=== PATIENT | male | born 1995 | race Caucasian/White ===

== ENCOUNTER 2024-05-30 14:12 | Emergency (ER) | payer OTHER, SELFPAY ==
[2024-05-30 15:04] VITALS: BP 131/77; PULSE 82; RESP 18; TEMP 36.6; O2SAT 98; BMI 19.2
--- NOTE | 2024-05-30 15:04 | ED_ITS ---
HPI - Animal Bite General Chief Complaint: Animal Bite Stated Complaint: mouse bite Time Seen by Provider: 05/30/24 16:14 Source: patient Mode of arrival: ambulatory Limitations: no limitations History of Present Illness HPI narrative: Patient is a 29-year-old male who presents to the emergency department for evaluation. He reports approximately 2-1/2 hours before his arrival here he had an encounter with a mouse that was acting unusual. He states that the mouse approached him which he would expect to be atypical of a masses behavior. He attempted to move the mouse away from him and thought that the mouse had bitten his left 4th finger. He states after attempting to move the mouse that it just cleared at him before running away. There was no break in the skin after this bite there was no bleeding. States that he presented to an urgent care for evaluation. When asked he states ?I made them give me a tetanus shot?. He is requesting rabies vaccination series at this time for ?peace of mind?. Related Data Allergies Allergy/AdvReac Type Severity Reaction Status Date / Time Penicillins Allergy Hives Verified 05/30/24 15:10 Review of Systems Review of Systems: Yes all other systems are reviewed and are negative [facility] Past Medical History Attestation statement: The following information was validated with the patient. Source: old records reviewed Social History Social History Advance Directives: No Advance Directives Information Provided: No Do you have a plan to hurt others: No Plan Physical Exam ED Vital Signs: Vital Signs - 24 hr 05/30/24 15:04 05/30/24 18:35 Temperature 97.9 F 97.9 F Pulse Rate 82 82 Respiratory Rate 18 18 Blood Pressure 131/77 131/77 Pulse Oximetry 98 98 Oxygen Delivery Method Room Air Room Air BMI result Body Mass Index 19.2 Appearance: Alert.?Oriented to person, place and time. No acute distress.?Normal affect. CVS: Heart sounds normal. Normal heart rate and rhythm.? Pulses normal.?? Respiratory: No respiratory distress.? Lung sounds clear to auscultation bilaterally?? Abdomen: Soft and non-tender. Normoactive bowel sounds. Skin: Skin warm and dry.? Normal skin color.? The area on his left 4th finger where there is any potential exposure to the mouth is without erythema swelling or break in the skin Extremities: No lower extremity edema.? Neuro: Moves all extremities spontaneously. Sensation intact bilaterally. Ambulates with normal steady gait. Course Course Course Narrative: This is an RME: Additional HPI, ROS, PE not included below will be deferred to primary provider. RME assessment and note performed by: Kallie Clifford PA-C This is a [id number]pcr-male who presents to the ER with complaints of left fourth finger animal bite. Pt states that about 2.5 hours ago he was accidentally bit by a small mouse. he states that the mouse had unusual behaviors and is concerned for rabies, would like series today. Plan: rabies vax Medical Decision Making Medical Decision Making MDM Narrative: Patient is a 29-year-old male who presents emergency department requesting rabies vaccination after exposure to a mouse as per HPI. I did discuss with patient that per the CBC guidelines there was no indication for post exposure prophylaxis of rabies vaccination series with mice. They are considered to be low risk wild animals rarely found to have rabies and have never been known to transmit rabies to humans. Currently there is no evidence of an open wound or broken skin to suggest even a bite from the mouse. Patient deemed stable for discharge home Differential Diagnosis Differential Diagnoses: The differential diagnosis associated with the presentation includes External Record Review External record reviewed: Outpatient record Discharge Plan Discharge Clinical Impression: Bitten by mouse, initial encounter Patient Disposition: Home, Self-Care Instructions: Animal Bite (ED) Additional Instructions: As discussed, per the CDC guidelines it is not indicated at this time that you receive a post exposure prophylaxis vaccination series for rabies which would typically include for vaccinations as well as rabies immune globulin. Currently there is no evidence of an open wound, broken skin. Mice are conside red to be low risk wild animals, rarely found to have rabies and have never been known to transmit rabies to humans. Referrals: Mariana Lozano NP [Primary Care Provider] - Interventions: ED Discharge Assessment Last Done: 05/30/24 18:35 Discharge Date/Time: 05/30/24 18:35 Print Language: Albanian
--- OUTSIDE RECORDS SUMMARY | 2024-05-30 16:06 | XMS_ITS | Continuity of Care Document ---
Author Organization [facility] Primary Car [facility] Address [address] [place] [address]- Care Team Providers Care Spooler Operator Name Role Phone Not on Staff, PCP Primary Care Physician Unavail able Encounter [facility] Date(s): 09/03/23 - 10/03/23 [facility] [address], [place] [address] Allergies, Adverse Reactions, Alerts Substance Reaction Severity Status penicillin Hives and swelling o f arms Rash Active Immunizations Given and Recorded Vaccine Date Status Refusal Reason Meningococcal Conjugate Vaccine 06/02/14 Given Meningococcal Conjugate Vaccine 1 05/05/09 Given influenza virus vaccine, live 2 08/02/11 Given influenza virus vaccine, live 3 07/05/10 Given Tet/Diphth/Acel, Pertussis (oldterm) 4 05/05/09 Gi yaniv Varicella Virus Vaccine 5 05/05/09 Given Varicella Virus Vaccine 6 02/25/99 Given Diphtheria/Tet/Pertussis, Acel (oldterm) 7 11/13/03 Given Diphtheria/Tet/Pertussis, Acel (oldterm) 8 04/13/00 Given Diphtheria/Tet/Pertussis, Acel (oldterm) 9 01/18/98 Given Diphtheria/Tet/Pertussis, Acel (oldterm) 10 97 Given Diphtheria/Tet/Pertussis, Acel (oldterm) 11 97 Given Diphtheria/Tet/Pertussis, Acel (oldterm) 12 97 Given Poliovirus Vaccine, Inactivated 13 08/19/01 Given Poliovirus Vaccine, Inactivated 14 02/25/99 Given Poliovirus Vaccine, Inactivated 15 97 Given Poliovirus Vaccine, Inactivated 16 97 Given Measles/Mumps/Rubella Virus Vaccine 17 08/19/01 Gi yaniv Measles/Mumps/Rubella Virus Vaccine 18 07/22/98 Gi yaniv Hepatitis B Vaccine (old term) 19 09/20/98 Given Hepatitis B Vaccine (old term) 20 97 Given Hepatitis B Vaccine (old term) 21 97 Given Haemophilus B Conj Vaccine (oldterm) 22 97 G iven Haemophilus B Conj Vaccine (oldterm) 23 97 G iven Haemophilus B Conj Vaccine (oldterm) 24 97 G iven 1Admin Note: vis given/ menactra 2Admin Note: VIS dated 05/31/2010 given 3Admin Note: VIS dated 05/31/10 and given 4Admin Note: boostrix vis given 09/08/2008 5Admin Note: vis given 6Admin Note: vis given 7Admin Note: vis given 8Admin Note: vis given 9Admin Note: vis given 10Admin Note: vis given 11Admin Note: vis given 12Admin Note: vis given 13Admin Note: vis given 14Admin Note: vis given 15Admin Note: vis given 16Admin Note: vis given 17Admin Note: vis given 18Admin Note: vis given 19Admin Note: vis given 20Admin Note: vis given 21Admin Note: vis given 22Admin Note: vis given 23Admin Note: vis given 24Admin Note: vis given Problem List Condition Confirmation Course Effective Dates Status Health St atus Informant Well adolescent Confirmed Active Social History Social History Type Response Smoking Status Never (less than 100 in lifetime) entered on: 12/31/18 Sex Patient Care team information Care Team Personnel Name: Not on Staff, PCP Position: S Physician (General Medicine) Member Role: PCP Care Team Related Persons Name: RAUL DICKERSON Address: home [address] [place] [address] Name: PRASANNA ROONEY Address: home [address] [place] [id number]
--- OUTSIDE RECORDS SUMMARY | 2024-05-30 16:06 | XMS_ITS | Continuity of Care Document ---
Author Organization [facility] Address [address] [place] [address]- Care Team Providers Care Transaction Manager Name Role Phone Blake MANUEL, Lora Diaz Primary Care Physician Encounter [facility] Date(s): 01/17/24 - 01/24/24 [facility] [address] [place] [address]- Encounter Diagnosis HSV infection(Discharge Diagnosis) - 01/17/24 Palpitations(Discharge Diagnosis) - 01/17/24 Dizziness(Discharge Diagnosis) - 01/17/24 Burping(Discharge Diagnosis) - 01/17/24 Anxiety(Discharge Diagnosis) - 01/17/24 Attending Physician: Lora Lozano NP Referring Physician: Jey ESPARZA, Curly Adair Allergies, Adverse Reactions, Alerts Substance Reaction Severity [...] Effective Dates Status Health St atus Informant HSV infection Confirmed Active Diagnosis Diagnosis Type Effective Dates Health Status inical Service Informant HSV infection Discharge Diagnosis 01/17/24 Palpitations Discharge Diagnosis 01/17/24 Dizziness Discharge Diagnosis 01/17/24 Burping Discharge Diagnosis 01/17/24 Anxiety Discharge Diagnosis 01/17/24 Vital Signs Most recent to oldest [Reference Range]: 1 Height 171.5 cm (01/17/24 8:59 AM) Weight 61.5 kg (01/17/24 8:59 AM) Oxygen Saturation [94-100 %] 100 % (01/17/24 8:59 AM) Pulse Rate [55-90 bpm] 80 bpm (01/17/24 8:59 AM) Body Mass Index [18.5-24.99 kg/m2] 20.91 kg/m2 (01/17/24 8:59 AM) Blood Pressure [90-138/55-84 mm Hg] 114/ 59mm Hg (01/17/24 8:59 AM) Mode of Delivery (Oxygen) Room air (01/17/24 8:59 AM) Blood pressure sites Arm, left (01/17/24 8:59 AM) Weight Obtained Via Standing scale (01/17/24 8:59 AM) Social History Social History Type Response Smoking Status Never (less than 100 in lifetime) entered on: 12/31/18 Sex Note * Deandra Carreon: PERFORM, SIGN, VERIFY Event Display: Patient Education/Instruction Authored Date: [id number] [facility] Clinical Summary Name BEBA ROONEY Age 28 Years 1995 PCP Blake MANUEL, Lora Diaz PCP Visit Date 01/17/2024 08:50:00 Additional Instructions: Scheduled Appointments?? Future Appointments ?*[facility] ?Phone:??--?Fax:??-- ?Appt. Date:??02/13/2024?10:00 AM ?Scheduled Provider:??Malu Kapoor ?*[facility] ?[address],??[place],??[address] ?Phone:??[phone]?Fax:??-- ?Appt. Date:??04/18/2024?9:00 AM ?Scheduled Provider:??Blake MANUEL, Lora Diaz Follow-Up Instructions ?? With: Address: When: 04/18/2024 @ 9:00 AM WITH LORA LOZANO NP With: Address: When: PCP In 3 months Diagnosis Eructation; Dizziness and giddiness; Anxiety disorder, unspecified; Herpesviral infection, unspecified; Palpitations Medications: Please continue your medications until treatment is completed or stopped by your provider. Discuss any questions related to medications with your provider. Allergy Info:?? penicillin Medications Given This Visit Future Orders ?No future orders Future Orders ?No future orders Vital Signs Height 171.5 cm Weight 61.5 kg BMI 20.91 kg/m2 Blood Pressure 114 mm Hg/59 mm Hg Temperature Pulse Rate 80 bpm Respiratory Rate 02 Sat Mode of Delivery 100 %/Room air You can now view a summary of your hospital visit from the comfort of your home through a free online portal called [employer]. [employer] is a website that allows you to securely view your medical information including discharge summary, medications and follow-up visits. ??You can alsosend a secure electronic message to your doctor???s office to request appointments, renew medications or just ask a question. You can enroll at [email or web address] or register during your next office visit. Disclaimer:?? The information provided is of a general nature and is intended to be used in conjunction with the recommendations and advice of your health care practitioner. ??Every effort has been made to ensure that the information provided is accurate and complete at the time it is provided to you however, as your needs change, or, as new ??information becomes available, different or additional instructions may be required. If you have questions, please consult with your primary care provider or pharmacist, as appropriate. ??This information is not intended to serve as substitution for assessment and evaluation by a qualified health care provider. If you do not have a primary care provider, you may find a [facility] provider by calling [facility] [employer] Link at [phone]. [facility], in keeping with [facility] guidance, no longer requires face masks for staff, patientsor visitors in most situations. Similar to time spent indoors at other locations, there is the chance that you were exposed to respiratory viruses during your time with us (such as flu or COVID-19).? If you develop symptoms concerning for a viral respiratory infection, please seek testing (and treatment if indicated) from your medical provider or home test kit. For information about the plan of care including goals and instructions for your diagnosis, please see the patient education orders section of this document. Patient Education Materials?? The content of this educational material or handout may have been modified, supplemented, or adapted from its original content and format to support your individualized medical care. Patient Care team information Care Team Personnel Name: Blake MANUEL, Lora Diaz Position: [facility] PCO Associate Professional Member Role: PCP Address: Address: [address] [place] [address]- Care Team Related Persons Name: RAUL DICKERSON Address: home [address] [place] [address] Name: PRASANNA ROONEY Address: [address] [place] [address]
--- OUTSIDE RECORDS SUMMARY | 2024-05-30 16:06 | XMS_ITS | Continuity of Care Document ---
Author Organization [facility] Address [address] [place] [address]- Care Team Providers Care Pre Sales Systems Engineer Name Role Phone Berta MANUEL, Ham Ocampo Primary Care Physician [facility]counter [facility] Date(s): 12/14/21 - 01/13/22 [facility] [address] [place], [place] [address] Attending Physician: Elliot Redmond Admitting Physician: Elliot Redmond Referring Physician: AdmtrElliot Allergies, Adverse Reactions, Alerts Substance Reaction Severity [...] 24Admin Note: vis given Problem List Condition Effective Dates Status Health Status Inform ant Well adolescent(Confirmed) Active Social History Social History Type Response Smoking Status Never (less than 100 in lifetime) entered on: 12/31/18 Sex
--- OUTSIDE RECORDS SUMMARY | 2024-05-30 16:06 | XMS_ITS | Continuity of Care Document ---
Author Organization [facility] Address [address] [place] [address]- Care Team Providers Care Edging Machine Catcher Name Role Phone Berta MANUEL, Ham Ocampo Primary Care Physician Encounter [facility] Date(s): 11/30/21 - 01/13/22 [facility] [address] [place], [place] [address] Attending Physician: Not on Staff, Attending MD Allergies, Adverse Reactions, Alerts Substance Reaction Severity [...]
--- OUTSIDE RECORDS SUMMARY | 2024-05-30 16:06 | XMS_ITS | Continuity of Care Document ---
Author Organization [facility] Address [address] [place] [address]- Care Team Providers Care Cutch Cleaner Name Role Phone Blake MANUEL, Mariana Diaz Primary Care Physician Encounter [facility] Date(s): 12/25/23 - 01/24/24 [facility] [address] [place], [place] [address] Allergies, Adverse Reactions, Alerts Substance Reaction Severity [...] St atus Informant HSV infection Confirmed Active Social History Social History Type Response Smoking Status Never (less than 100 in lifetime) entered on: 12/31/18 Sex Patient Care team information Care Team Personnel Name: Blake MANUEL, Mariana Diaz Position: [facility] PCO Associate Professional Member Role: PCP Address: Address: [address] [place] [address]- Care Team Related Persons Name: RAUL DICKERSON Address: home [address] [place] [address] Name: PRASANNA ROONEY Address: [address] [place] [address]
--- OUTSIDE RECORDS SUMMARY | 2024-05-30 16:06 | XMS_ITS | Continuity of Care Document ---
Author Organization [facility] Address [address] [place] [address]- Care Team Providers Care Specimen Accessioner Name Role Phone Blake MANUEL, Mariana Diaz Primary Care Physician [facility]counter [facility] Date(s): 04/09/24 - 05/09/24 [facility] [address] [place], [place] [address] Allergies, Adverse Reactions, Alerts Substance Reaction Severity [...] Note: vis given 24Admin Note: vis given Medications Abilify 5 mg oral tablet 5 mg, 1, tablet, By Mouth, Daily, # 90 tablet, Refills 0, Tot. Refills 0, Maintenance, 05/02/24 8:33:00 EDT, Route to Pharmacy Electronically, [facility]/pharmacy #[id number], Partial fill upon patient request ifthe prescription is for a schedule II opioid drug.,... Start Date: 05/02/24 Status: Ordered hydrOXYzine hydrochloride 10 mg oral tablet 1 tablet, By Mouth, 4 times a day, PRN NEEDED FOR ANXIETY, # 90 tablet, 0 Refills, Maintenance, 05/08/24 9:21:00 EDT, [facility] STORE [id number], 171.5, cm, 05/05/24 16:25:00 EDT, Height Start Date: 05/08/24 Status: Ordered One A Day Men's Complete By Mouth, Daily, 0 Refills, Maintenance, 03/05/24 9:30:00 EDT, Partial fill upon patient request ifthe prescription is for a schedule II opioid drug. Start Date: 03/05/24 Status: Ordered Problem List Condition Confirmation Course Effective Dates Status Health St atus Informant HSV infection Confirmed Active Social History Social History Type Response Smoking Status Never (less than 100 in lifetime) entered on: 12/31/18 Sex Patient Care team information Care Team Personnel Name: Blake MANUEL, Mariana Diaz Position: S PCO Associate Professional Member Role: PCP Address: Address: [address] [place] [id number] Care Team Related Persons Name: RAUL DICKERSON Address: home [address] [place] [address] Name: PRASANNA ROONEY Address: [address] [place] [address]
--- OUTSIDE RECORDS SUMMARY | 2024-05-30 16:06 | XMS_ITS | Continuity of Care Document ---
Author Organization [facility] Address [address] [address]- Care Team Providers Care Payment Analyst Name Role Phone Blake MANUEL, Mariana Diaz Primary Care Physician [facility]counter [facility] Date(s): 03/05/24 - 05/14/24 [facility] [address] [address]- Attending Physician: Aminata Givens Admitting Physician: Aminata Givens Referring Physician: Mariana Lozano NP Allergies, Adverse Reactions, Alerts Substance Reaction Severity [...] 05/02/24 8:33:00 EDT, Route to Pharmacy Electronically, [facility]/pharmacy #[id number], Partial fill upon patient request ifthe prescription is for a schedule II opioid drug.,... Start Date: 05/02/24 Status: Ordered hydrOXYzine hydrochloride 10 mg oral tablet 1 tablet, By Mouth, 4 times a day, PRN NEEDED FOR ANXIETY, # 90 tablet, 0 Refills, Maintenance, 05/08/24 9:21:00 EDT, [facility] STORE [id number], 171.5, cm, 05/05/24 16:25:00 EDT, Height Start [...] Personnel Name: Blake MANUEL, Mariana Diaz Position: [facility] PCO Associate Professional Member Role: PCP Address: Address: [facility] [place] [address]- Care Team Related Persons Name: RAUL DICKERSON Address: home [address] [place] [address] Name: PRASANNA ROONEY Address: home [address] [place] [address]
--- OUTSIDE RECORDS SUMMARY | 2024-05-30 16:06 | XMS_ITS | Continuity of Care Document ---
Author Organization [facility] Address [address] [place] [address]- Care Team Providers Care Tab Cutting Machine Operator Name Role Phone Blake MANUEL, Mariana Diaz Primary Care Physician Encounter [facility] Date(s): 05/05/24 - 05/12/24 [facility] [address] [place] [address]- Encounter Diagnosis Mood disorder(Discharge Diagnosis) - 05/05/24 Neutropenia(Discharge Diagnosis) - 05/05/24 Attending Physician: Mariana Lozano NP Allergies, Adverse Reactions, [...] 05/02/24 8:33:00 EDT, Route to Pharmacy Electronically, [facility]/pharmacy #[id number], Partial fill upon patient request ifthe prescription is for a schedule II opioid drug.,... Start Date: 05/02/24 Status: Ordered hydrOXYzine hydrochloride 10 mg oral tablet 1 tablet, By Mouth, 4 times a day, PRN NEEDED FOR ANXIETY, # 90 tablet, 0 Refills, Maintenance, 05/08/24 9:21:00 EDT, [facility] STORE [id number], 171.5, cm, 05/05/24 16:25:00 EDT, Height Start [...] Diagnosis Diagnosis Type Effective Dates Health Status Cl inical Service Informant Mood disorder Discharge Diagnosis 05/05/24 Neutropenia Discharge Diagnosis 05/05/24 Vital Signs Most recent to oldest [Reference Range]: 1 Height 171.5 cm (05/05/24 4:25 PM) Oxygen Saturation [94-100 %] 99 % (05/05/24 4:25 PM) Pulse Rate [55-90 bpm] 86 bpm (05/05/24 4:25 PM) Blood Pressure [90-138/55-84 mm Hg] 136/ 90mm Hg (05/05/24 4:25 PM) Mode of Delivery (Oxygen) Room air (05/05/24 4:25 PM) Blood pressure sites Arm, right (05/05/24 4:25 PM) Weight Obtained Via Standing scale (05/05/24 4:25 PM) Social History Social History Type Response Smoking Status Never (less than 100 in lifetime) entered on: 12/31/18 Sex Patient Care team information Care Team Personnel Name: Blake MANUEL, Mariana Diaz Position: S PCO Associate Professional Member Role: PCP Address: Address: [address] [place] [address]- Care Team Related Persons Name: RAUL DICKERSON Address: home [address] [place] [address] Name: PRASANNA ROONEY Address: [address] [place] [address]
--- OUTSIDE RECORDS SUMMARY | 2024-05-30 16:06 | XMS_ITS | Continuity of Care Document ---
Author Organization [facility] [place] [address] [address]- Care Team Providers Care Sheet Metal Duct Installer Helper Name Role Phone Blake MANUEL, Mariana Diaz Primary Care Physician Encounter [facility] Date(s): 04/14/24 - 05/14/24 [facility] [address] [address]- Attending Physician: Elliot Redmond Admitting Physician: Elliot [...] 05/02/24 8:33:00 EDT, Route to Pharmacy Electronically, [facility]/pharmacy #[id number], Partial fill upon patient request ifthe prescription is for a schedule II opioid drug.,... Start Date: 05/02/24 Status: Ordered hydrOXYzine hydrochloride 10 mg oral tablet 1 tablet, By Mouth, 4 times a day, PRN NEEDED FOR ANXIETY, # 90 tablet, 0 Refills, Maintenance, 05/08/24 9:21:00 EDT, [facility] STORE [id number], 171.5, cm, 05/05/24 16:25:00 EDT, Height Start [...] Personnel Name: Blake MANUEL, Mariana Diaz Position: [facility] PCO Associate Professional Member Role: PCP Address: Address: [facility] [place] [address]- Care Team Related Persons Name: RAUL DICKERSON Address: home [address] [place] [address] Name: PRASANNA ROONEY Address: [address] [place] [address]
--- OUTSIDE RECORDS SUMMARY | 2024-05-30 16:06 | XMS_ITS | Continuity of Care Document ---
Author Organization [facility] Address [address] [address]- Care Team Providers Care Boot Turner Name Role Phone Blake MANUEL, Mariana Diaz Primary Care Phys[facility] Date[facility]24 - 03/26/24 [facility] [address] [address]- Attending Physician: Adam Macdonald MD Admitting Physician: Adam Macdonald MD Referring Physician: Adam Macdonald MD Allergies, Adverse Reactions, Alerts Substance Reaction [...] vis given 24Admin Note: vis given Medications One A Day Men's Complete By Mouth, [...] 100 in lifetime) entered on: 12/31/18 Sex US Heart * Event Display: Echocardiogram - Complete Authored Date: [id number] Transthoracic Echocardiography Report (TTE) Patient Demographics Patient Name BEBA ROONEY Date of Study 03/19/2024 Corporate Gender Male Facility Race Unknown Ethnicity Date of 1995 Height: 67 inches Age 28 year(s) Weight: 145.5 pounds Accession Number [id number] BSA: 1.77 m2 Room Number BMI: 22.79 kg/m2 Referring Physician Adam Macdonald MD Interpreting Physician Adam Macdonald MD Beauty Director Jimbo Rodriguez Indications Palpitations. Study Data Type of Study TTE procedure:Echo Complete-Doppler, Colorflow, M-Mode. Study Date03/19/2024 Start Time: 09:11 AM Study Location: [facility] Echo Study Status: Echo lab Patient Status: Routine Technical Quality: Fair due to rib artifact. Blood Pressure:125/66 mmHg EKG: Within normal limits HR: 66 bpm 2D Measurements LV Diastolic Dimension: 4.6 cm LV Systolic Dimension: 2.8 cm LV Septum Diastolic: 0.8 cm LV PW Diastolic: 0.8 cm AO Root Dimension: 2.4 cm LA Dimension: 3.1 cm LA ESV (BP):28.9 ml LVOT Stroke Volume: 39.96 ml LA ESV Index: 16 ml/m2 Stroke Volume Index22.58 ml/m2 LVOT: 1.9 cm Cardiac Index:1.49 l/min/m2 Ascending Aorta:2.4 cm Doppler Measurements AV Peak Velocity: 105 cm/s MV Peak E-Wave: 74.6 cm/s AV Peak Gradient: 4.41 mmHg MV Peak A-Wave: 43.7 cm/s AV Mean Gradient: 2 mmHg MV E/A Ratio: 1.71 AV VTI:18.9 cm MV P1/2t: 69 msec LVOT Peak Velocity: 73.8 cm/s LVOT VTI14.1 cm MV Deceleration Time: 235 msec AV Area (Continuity):2.11 cm2 MV Area (PHT): 3.19 cm2 Estimated RAP:8 mmHg E' Septal Velocity: 14.4 cm/s E' Lateral Velocity: 13.3 cm/s E/Med E':5.516243 E/Lat E':5.115684 Cardiac Anatomy Left Ventricle/Interventricular Septum Left ventricular size and wall thickness are normal. Normal LV systolic function. Ejection fraction is 55-60%. There are no regional wall motion abnormalities. Normal diastolic function. Left Atrium/Interatrial Septum The left atrium is normal in size. Aortic Valve The aortic valve is trileaflet and normal in structure and function. There is no aortic stenosis or insufficiency. Mitral Valve The mitral valve opening is normal. There is trivial mitral regurgitation. Aorta The ascending aorta and aortic root are normal in size. Right Ventricle The right ventricle is normal in size and function. Right Atrium The right atrium is normal in size. Pulmonic Valve The pulmonic valve is poorly visualized. There is no significant pulmonic regurgitation. Tricuspid Valve The tricuspid valve leaflet opening is normal. There is trace tricuspid valve regurgitation. Pumonary Artery An accurate pulmonary artery pressure could not be obtained. Venous Structures The inferior vena cava size is dilated with normal inspiratory collapse. The central venous pressure estimation is 8 mmHg. Pericardium/Extracardiac There is no significant pericardial effusion. Summary 1. Left ventricular size and wall thickness are normal. Normal LV systolic function. Ejection fraction is 55-60%. There are no regional wall motion abnormalities. Normal diastolic function. 2. The right ventricle is normal in size and function. An accurate pulmonary artery pressure could not be obtained. 3. Biatrial size is normal. 4. There is no hemodynamically significant valvular disease. Comparison No prior study available for comparison. Signature * Event Display: Echocardiogram - Complete Authored Date: [id number] Patient Care team information Care Team Personnel Name: Blake MANUEL, Mariana Diaz Position: [facility] Associate Professional Member Role: PCP Address: Address: [address] [place] [address]- Care Team Related Persons Name: RAUL DICKERSON Address: home [address] [place] [address] Name: PRASANNA ROONEY Address: [address] [address]
--- OUTSIDE RECORDS SUMMARY | 2024-05-30 16:06 | XMS_ITS | Continuity of Care Document ---
Author Organization [facility] Address [address] [place] [address]- Care Team Providers Care Grain Inspector Name Role Phone Blake MNAUEL, Mariana Diaz Primary Care Physician [facility] Date[facility]): 04[facility]14[facility]24 - 04/21/24 [facility] [address] [place] [address]- Encounter Diagnosis Generalized anxiety disorder(Discharge Diagnosis) - 04/14/24 Neutropenia(Discharge Diagnosis) - 04/14/24 Mood disorder(Discharge Diagnosis) - 04/14/24 Attending Physician: Mariana Lozano NP Allergies, Adverse [...] vis given 24Admin Note: vis given Medications hydrOXYzine hydrochloride 10 mg oral tablet 1 tablet = 10 mg, By Mouth, 4 times a day, PRN for anxiety, # 90 tablet, 0 Refills, Maintenance, 04/14/24 17:08:00 EDT, Tablet, [facility]/pharmacy #[id number], Partial fill upon patient request if the prescription is for a schedule II opioid drug., 171.5, cm, . Start Date: 04/14/24 Status: Ordered One A Day Men's Complete By Mouth, Daily, 0 Refills, Maintenance, 03/05/24 9:30:00 EDT, Partial fill upon patient request ifthe prescription is for a schedule II opioid drug. Start Date: 03/05/24 Status: Ordered Problem List Condition Confirmation Course Effective Dates Status Health St atus Informant HSV infection Confirmed Active Diagnosis Diagnosis Type Effective Dates Health Status Clinical Service Informant Generalized anxiety disorder Discharge Diagnosis 04/14/24 Neutropenia Discharge Diagnosis 04/14/24 Mood disorder Discharge Diagnosis 04/14/24 Vital Signs Most recent to oldest [Reference Range]: 1 Height 171.5 cm (04/14/24 4:23 PM) Oxygen Saturation [94-100 %] 99 % (04/14/24 4:23 PM) Pulse Rate [55-90 bpm] 100 bpm *H* (04/14/24 4:23 PM) Blood Pressure [90-138/55-84 mm Hg] 101/ 70mm Hg (04/14/24 4:23 PM) Mode of Delivery (Oxygen) Room air (04/14/24 4:23 PM) Blood pressure sites Arm, left (04/14/24 4:23 PM) Weight Obtained Via Standing scale (04/14/24 4:23 PM) Social History Social History Type Response Smoking Status Never (less than 100 in lifetime) entered on: 12/31/18 Sex Note * Gerardo Calabrese: PERFORM Event Display: Patient Education/Instruction Authored Date: [id number] Ambulatory Adult Visit Summary [address] [address] Name: BEBA ROONEY : 1995?? Visit: 04/14/2024 16:20?? Ambulatory Visit Instructions ?? Your Care Team Primary Care Provider Blake MANUEL, Mariana Diaz? This Visit Provider Mariana Lozano NP Your Diagnosis Generalized anxiety disorder Neutropenia Mood disorder Vitals Signs Pulse Rate:??100 bpm??High Height: 171.5 cm Systolic Blood Pressure: 101 mm Hg ?? Diastolic Blood Pressure: 70 mm Hg ?? Oxygen Saturation: 99 % ?? What to do next Future Orders Peripheral Blood Smear Review - Routine, Once, 04/14/24 16:44:00 EDT, Future Order, [facility], Blood?? CBC w/ Differential - Routine, Once, 04/14/24 16:44:00 EDT, Order for Today, [facility], Blood?? TSH Rfx on Abnormal to Free T4 - Routine, Once, 04/14/24 17:07:00 EDT, Order for Today, [facility], Blood?? Medications The list below reflects the information in our records and provided by you today along with any changes made during this visit. Please continue your medications until treatment is completed or stopped by your provider. If this is different from the information you have or there are other questions,please contact the prescribing provider. What How Much When Why Instructions New HydrOXYzine (hydrOXYzine hydrochloride 10 mg oral tablet) 1 tab(s) Oral 4 times a day as needed for for anxiety Generalized anxiety disorder Pickup at [facility]/pharmacy #[id number] Unchanged Multivitamin With Minerals (One A Day Men's Complete) Oral Daily Pharmacy Information [facility]/pharmacy #[id number]: [id number] [place] [phone] Test Performed Below is a partial list of the tests performed during your Visit. You may have had other tests and procedures not included in this list. Please discuss all test results with your provider. CBC w/ Differential?-- Results Pending -- Peripheral Blood Smear Review?-- Results Pending -- TSH Rfx on Abnormal to Free T4?-- Results Pending -- You will be contacted within 72 hours with your results. Medications and Immunizations Administered Medications Given During Visit No medications given during this visit.?? Allergies (NKA means No Known Allergies) penicillin??(Hives and swelling of arms, Rash) Common Emergency Awareness Tips IS IT A STROKE? Act FAST and Check for these signs: FACE Does the face look uneven? ARM Does one arm drift down? SPEECH Does their speech sound strange? TIME Call at any sign of stroke ?? Heart Attack Signs Chest discomfort: Most heart attacks involve discomfort in the center of the chest and lasts more than a few minutes, or goes away and comes back. It can feel like uncomfortable pressure, squeezing, fullness or pain. Discomfort in upper body: Symptoms can include pain or discomfort in one or both arms, back, neck, jaw or stomach. Shortness of breath: With or without discomfort. Other signs: Breaking out in a cold sweat, nausea, or lightheaded. Remember, MINUTES DO MATTER. If you experience any of these heart attack warning signs, call to get immediate medical attention! ?? Smoking can increase your chances of developing chronic health problems and can cause harmful effects to other family members in your house. If you smoke, you are strongly encouraged to quit. Please call [facility] Link at [phone] or [phone] ([phone]) or log in to [email or web address] for referrals to smoking cessation programs. ?? The National Suicide Prevention Hotline is available 14/05 if you or someone you know needs to find a reason to keep living. By calling 1-019-853-natue (1804) you'll be connected to a skilled, trained counselor at a crisis center in your area. [facility] Portal You can view and manage your care through the patient portal or by using a health care rio of your choosing. [employer] is a website that allows you to securely view your medical information including your hospital discharge summary, office visit summaries, medications and follow-up visits. You can also request appointments, renew medications, and request access to your medical information using a health care rio of your choosing, or just ask a question. You can enroll at [email or web address] or register during your next office visit. [facility], in keeping with [facility] guidance, no longer requires face masks for staff, patientsor visitors in most situations. Similiar to time spent indoors at other locations, there is the chance that you were exposed to repiratory viruses during your time with us (such as flu or COVID-19). If you develop symptoms concerning for a viral respiratory infection, please seek testing (and treatment if indicated) from your medical provider or home test kit. ?? Disclaimer: The information provided is of a general nature and is intended to be used in conjunction with the recommendations and advice of your health care practitioner. Every effort has been made to ensure that the information provided is accurate and complete at the time it is provided to you however, as your needs change, or, as new information becomes available, different or additional instructions may be required. ?? If you have questions, please consult with your primary care provider or pharmacist, as appropriate. This information is not intended to serve as substitution for assessment and evaluation by a qualified health care provider. If you do not have a primary care provider, you may find a [facility] provider by calling [facility] at [phone]. Patient Care team information Care Team Personnel Name: Blake MANUEL, Mariana Diaz Position: [facility] Associate Professional Member Role: PCP Address: Address: [address] [place] [address]- Care Team Related Persons Name: RAUL DICKERSON Address: home [address] [place] [address] Name: PRASANNA ROONEY Address: [address] [place] [address]
--- OUTSIDE RECORDS SUMMARY | 2024-05-30 16:06 | XMS_ITS | Continuity of Care Document ---
Author Organization [facility] Address [address] [address]- Care Team Providers Care Supervisor Cereal Name Role Phone Blake MANUEL, Mariana Diaz Primary Care Physician [place] [facility] 05[place]09[place] - 05/16/24 [facility] [address] [address]- Attending Physician: Adam Macdonald MD Admitting Physician: [...] 05/02/24 8:33:00 EDT, Route to Pharmacy Electronically, [facility]/pharmacy #[id number], Partial fill upon patient request ifthe prescription is for a schedule II opioid drug.,... Start Date: 05/02/24 Status: Ordered hydrOXYzine hydrochloride 10 mg oral tablet 1 tablet, By Mouth, 4 times a day, PRN NEEDED FOR ANXIETY, # 90 tablet, 0 Refills, Maintenance, 05/08/24 9:21:00 EDT, [facility] STORE [id number], 171.5, cm, 05/05/24 16:25:00 EDT, Height Start [...] Personnel Name: Blake MANUEL, Mariana Diaz Position: [facility] Associate Professional Member Role: PCP Address: Address: [address] [place] [address]- Care Team Related Persons Name: RAUL DICKERSON Address: [address] [place] [address] Name: PRASANNA ROONEY Address: [address] [place] [address]
--- OUTSIDE RECORDS SUMMARY | 2024-05-30 16:06 | XMS_ITS | Continuity of Care Document ---
Author Organization [facility] Address [address] [place] [address]- Care Team Providers Care Halftone Operator Name Role Phone Not on Staff, PCP Primary Care Physician Unavail able Encounter [facility] Date(s): 11/29/23 - 12/29/23 [facility] [address] [place] [address]- Allergies, Adverse Reactions, Alerts Substance Reaction Severity [...] Persons Name: RAUL DICKERSON Address: home [address] [place] [address] Name: PRASANNA ROONEY Address: [address] [place] [address]
--- OUTSIDE RECORDS SUMMARY | 2024-05-30 16:06 | XMS_ITS | Continuity of Care Document ---
Author Organization [facility] Address [address] [place] [address]- Care Team Providers Care Magnetic Tape Typewriter Operator Name Role Phone Blake MANUEL, Mariana Diaz Primary Care Physician [facility]counter [facility] Date(s): 01/22/24 - 02/21/24 [facility] [address] [place], [place] [address] Allergies, Adverse Reactions, Alerts Substance Reaction Severity [...] Personnel Name: Blake MANUEL, Mariana Diaz Position: [facility] Associate Professional Member Role: PCP Address: Address: [address] [place] [address]- Care Team Related Persons Name: RAUL DICKERSON Address: home [address] [place] [address] Name: PRASANNA ROONEY Address: [address] [place] [address]
--- OUTSIDE RECORDS SUMMARY | 2024-05-30 16:06 | XMS_ITS | Continuity of Care Document ---
Author Organization [facility] Address [address] [address]- Care Team Providers Care Uc Architect Name Role Phone Blake MANUEL, Mariana Diaz Primary Care Physician Encounter [facility] Date(s): 03/19/24 - 04/18/24 [facility] [address] [address]- Attending Physician: Elliot Redmond Admitting Physician: Elliot [...] 0 Refills, Maintenance, 04/14/24 17:08:00 EDT, Tablet, [facility]/pharmacy #[id number], Partial fill upon patient request if the [...] Personnel Name: Blake MANUEL, Mariana Diaz Position: [facility] Associate Professional Member Role: PCP Address: Address: [address] [place] [address]- Care Team Related Persons Name: RAUL DICKERSON Address: home [address] [place] [address] Name: PRASANNA ROONEY Address: [address] [place] [address]
--- OUTSIDE RECORDS SUMMARY | 2024-05-30 16:06 | XMS_ITS | Continuity of Care Document ---
Author Organization [facility] Address [address] [place] [address]- Care Team Providers Care Traffic Officer Name Role Phone Not on Staff, PCP Primary Care Physician Unavail able Encounter [facility] Date(s): 11/30/23 - 12/30/23 [facility] [address] [place] [address]- Attending Physician: Elliot Redmond Admitting Physician: Elliot Redmond Referring Physician: AdmElliot lucero Allergies, Adverse Reactions, Alerts Substance Reaction Severity [...] Persons Name: RAUL DICKERSON Address: home [address] [place] [address] Name: PRASANNA ROONEY Address: [address] [place] [address]
--- OUTSIDE RECORDS SUMMARY | 2024-05-30 16:06 | XMS_ITS | Continuity of Care Document ---
Author Organization [facility] Address [address] [address]- Care Team Providers Care Associate Professor Of Geography Name Role Phone Blake MANUEL, Mariana Diaz Primary Care Physician [facility]counter [facility] Date(s): 03/20/24 - 04/19/24 [facility] [address] [address]- [place] Allergies, Adverse Reactions, Alerts Substance Reaction Severity [...] 0 Refills, Maintenance, 04/14/24 17:08:00 EDT, Tablet, [facility]/pharmacy #[id number], Partial fill upon patient request if the prescription is for a schedule II opioid drug., 171.5, cm, ... Start Date: 04/14/24 Status: Ordered One A [...] Associate Professional Member Role: PCP Address: Address: [address] [place] [address]- Care Team Related Persons Name: RAUL DICKERSON Address: [address] [place] [address] Name: PRASANNA ROONEY Address: [address] [place] [address]
--- OUTSIDE RECORDS SUMMARY | 2024-05-30 16:06 | XMS_ITS | Continuity of Care Document ---
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 Refills 0, Acute 03/19/24 9:50:00 EDT, 03/05/24 9:50:00 EDT, Route to Pharmacy Electronically, [facility]/pharmacy #[id number], Partial fill upon patient request if the prescript... Start Date: 03/05/24 Stop Date: 03/19/24 Status: Ordered One A Day Men's Complete By Mouth, Daily, 0 Refills, Maintenance, 03/05/24 9:30:00 EDT, Partial fill upon patient request ifthe prescription is for a schedule II opioid drug. Start Date: 03/05/24 Status: Ordered Problem List Condition Confirmation Course Effective Dates Status Health St atus Informant HSV infection Confirmed Active Diagnosis Diagnosis Type Effective Dates Health Status Cl inical Service Informant Palpitations Discharge Diagnosis 03/05/24 Vital Signs Most recent to oldest [Reference Range]: 1 Height 171.5 cm (03/05/24 9:28 AM) Weight 66 kg (03/05/24 9:28 AM) Oxygen Saturation [94-100 %] 100 % (03/05/24 9:28 AM) Pulse Rate [55-90 bpm] 88 bpm (03/05/24 9:28 AM) Body Mass Index [18.5-24.99 kg/m2] 22.44 kg/m2 (03/05/24 9:28 AM) Blood Pressure [90-138/55-84 mm Hg] 125/ 66mm Hg (03/05/24 9:28 AM) Mode of Delivery (Oxygen) Room air (03/05/24 9:28 AM) Blood pressure sites Arm, left (03/05/24 9:28 AM) Weight Obtained Via Patient/family state d (03/05/24 9:28 AM) Social History Social History Type Response Smoking Status Never (less than 100 in lifetime) entered on: 12/31/18 Sex EKG study * Event Display: ECG 12-Lead Authored Date: Please click on pdf link to open report * Event Display: ECG 12-Lead Authored Date: Ventricular Rate: 88 BPM Atrial Rate: 88 BPM P-R Interval: 114 ms QRS Duration: 78 ms Q-T Interval: 356 ms QTC Calculation(Bazett): 430 ms P [place]: 76 degrees R [place]: 62 degrees T [place]: 71 degrees Poor data quality, interpretation may be adversely affected Sinus rhythm with Premature atrial complexes Otherwise normal ECG No previous ECGs available Confirmed by ADAM GOETZ ([id number]) on 03/05/2024 4:10:52 PM [place]: ADAM GOETZ Cardiology Outpatient Note * Adam Goetz MD: PERFORM, MODIFY Event Display: Cardiology Note Office Authored Date: [id number] Patient: ??BEBA ROONEY ? Age:??28 Years?Sex:??Male?:??1995?? Patient Hx Provider Clinical Summary 28-year-old man seen??for evaluation of pericarditis and palpitations. Was seen in the emergency room??December??2023??([facility]) for??a sharp, stabbing type chest discomfort??and was diagnosed with pericarditis.?? He got quite nauseous with vomiting after only1 dose of colchicine??and only took ibuprofen for??2 or 3 days thereafter.?? Sharp stabbing type pain??at rest has continued since then. ??He also has a longstanding history of palpitations. ??He feels an irregular??pulse, pauses and also early beats??which she speculates could be due to some anxiety. ?? Impression and plan: Presumed pericarditis.?Ibuprofen 600 mg 3 times daily for 14 days to complete a full??anti-inflammatory course.?? Will not add colchicine due to??GI side effects with only a single dose in the emergency room.?? Advised to??stay away from??boxing??until??symptoms resolve and he has completed his course of ibuprofen. ??Echocardiogram to evaluate??for pericardial effusion ?? Palpitations.?? ECG today in the office does show??sinus rhythm with??premature atrial contractions.?? However, these are not felt by the patient so??he could have an additional underlying arrhythmia. ??14-day Zio XT??patch arranged.?? Echocardiogram as well. ?? Return to clinic after testing is complete Physical Exam Vitals & Measurements HR:??88??(Peripheral)?? BP:??125/66?? SpO2:??100%?? HT:??171.5??cm?? WT:??66??kg?? BMI:??22.44?? Weight lb/oz: 145 lb 8 oz GENERAL: ??Alert and oriented x3, no acute distress. HEENT: Mucous membranes pink and moist. ?? NECK: ??No JVD?? LUNGS: Clear to auscultation bilaterally. ??No crackles, wheezing, rhonchi. ?? HEART: ??Regular rate and rhythm, normal S1, S2. ??No murmurs, rubs, or gallops.?? ABDOMEN: Soft, nontender, nondistended.?? EXTREMITIES: ??No pitting edema, cyanosis, clubbing. ?? PULSES: 2+ radials SKIN: Warm and well perfused. ?? NEURO: ??Oriented to person, time, and place, following commands, and moving all extremities.?? MUSCULOSKELETAL: ??Negative.?? Assessment/Plan 1.??Pericarditis Ordered: ECG 12 Lead Echo Complete Follow up Appointment ?? 2.??Palpitations Ordered: Echo Complete Follow up Appointment ?? Orders: Ibuprofen, 600 mg, 1, tablet, By Mouth, 3 times a day, for 14 days, # 42 tablet, Refills 0, Tot. Refills 0, Acute 03/19/24 9:50:00 EDT, 03/05/24 9:50:00 EDT, Route to Pharmacy Electronically, [facility]/pharmacy #[id number], Partial fill upon patient request if the prescript... Allergies penicillin??(Hives and swelling of arms, Rash) Home Medications ibuprofen 600 mg oral tablet, 600 mg= 1 tablet, By Mouth, 3 times a day One A Day Men's Complete, By Mouth, Daily Lab Results Cardiology Labs WBC:??3.1 x10E3/uL??Low (01/25/24) RBC: 5.19 (01/25/24) Hgb: 14.8 g/dL (01/25/24) Hct: 44.6 % (01/25/24) MCV: 86 fL (01/25/24) MCH: 28.5 pg (01/25/24) MCHC: 33.2 g/dL (01/25/24) Platelet Count: 266 x10E3/uL (01/25/24) Abs. Neut:??1 x10E3/uL??Low (01/25/24) Abs. Lymph: 1.7 x10E3/uL (01/25/24) Abs. Chaves: 0.3 x10E3/uL (01/25/24) Abs. Eo: 0.1 x10E3/uL (01/25/24) Abs. Baso: 0 x10E3/uL (01/25/24) Neut %: 31 % (01/25/24) Chaves %: 10 % (01/25/24) Eos %: 3 % (01/25/24) Baso %: 1 % (01/25/24) Imm Gran: 0 % (01/25/24) Abs. Imm Gran: 0 x10E3/uL (01/25/24) Sodium: 141 mmol/L (01/17/24) Potassium: 4.4 mmol/L (01/17/24) Chloride: 103 mmol/L (01/17/24) Bicarbonate Level: 23 mmol/L (01/17/24) Glucose Level: 88 mg/dL (01/17/24) Hemoglobin A1C (Monitoring): 5.1 % (01/17/24) BUN: 13 mg/dL (01/17/24) Creatinine-Blood: 1.05 mg/dL (01/17/24) Calcium: 9.6 mg/dL (01/17/24) Protein, Total: 7.4 g/dL (01/17/24) Albumin: 4.7 g/dL (01/17/24) Alkaline Phosphatase: 110 IU/L (01/17/24) AST (SGOT): 17 IU/L (01/17/24) ALT (SGPT): 15 IU/L (01/17/24) Bilirubin, Total: 0.4 mg/dL (01/17/24) TSH: 0.775 uIU/mL (01/17/24) Problem List/Past Medical History Ongoing HSV infection Procedure/Surgical History None Social History Alcohol Use: Current. Frequency: 1-2 times per month. Electronic Cigarette/Vaping Electronic Cigarette Use: Never. Employment/School Status: Employed. Other: [employer]. Exercise Self assessment: Good condition. Other: gym, weight lifting, running. Home/Environment Living situation: Home/Independent. Lives with: Mother. Nutrition/Health Diet: Regular. Sexual Sexually involved in last 6 months: Yes. Gender identity: Identifies as male. Self described orientation: Straight or heterosexual. Substance Abuse Use: Current. Type: Marijuana. Tobacco Use: Never (less than 100 in lifetime). Family History Mother: Diabetes mellitus type II Mat. Grandmother: Hypertension; Osteoporosis Pat. Grandmother: Cancer of breast Mat. Grandfather: Stomach cancer Note * Lucy De Leon: PERFORM Event Display: Patient Education/Instruction Authored Date: [id number] Ambulatory Adult Visit Summary [facility] [address] [place] [address] Name: BEBA ROONEY : 1995?? Visit: 03/05/2024 09:00?? Ambulatory Visit Instructions ?? Your Care Team Primary Care Provider Blake MANUEL, Mariana Diaz? This Visit Provider Adam Goetz MD Your Diagnosis Pericarditis Palpitations Vitals Signs Pulse Rate: 88 bpm Height: 171.5 cm Systolic Blood Pressure: 125 mm Hg Weight: 66 kg Diastolic Blood Pressure: 66 mm Hg Body Mass Index: 22.44 kg/m2 Oxygen Saturation: 100 % Body surface area: 1.77 What to do next Scheduled Follow-Up Appointments Sunday 9:00 AM EDT ?? Where: [facility] Diag Status: Pending Sunday 10:40 AM EDT ?? Where: [facility] Diag Status: Pending Sunday 10:00 AM EDT ?? With: Onofre ACOSTA, Aminata Adair Where: [facility] Office [address] [place] [address]- Status: Pending Sunday 9:00 AM EDT ?? With: Blake MANUEL, Mariana Diaz Where: [facility] [address] [address]- Status: Pending Follow-Up Appointments Follow up Appointment - Ordered?-- RTC after testing completed (Echo for pericarditis/palps and Zio for Palps), 03/05/24 9:48:00 EDT Medications The list below reflects the information in our records and provided by you today along with any changes made during this visit. Please continue your medications until treatment is completed or stopped by your provider. If this is different from the information you have or there are other questions,please contact the prescribing provider. What How Much When Instructions New Ibuprofen (ibuprofen 600 mg oral tablet) 1 tab(s) Oral 3 times a day Duration: 14 Days Pickup at [facility]/pharmacy #[id number] Unchanged Multivitamin With Minerals (One A Day Men's Complete) Oral Daily Pharmacy Information [facility]/pharmacy #[id number]: [address] [place] [phone] Medications and Immunizations Administered Medications Given During [...] are strongly encouraged to quit. Please call [employer] at [phone] or [phone] ([phone]) or log in to [email or web address] for referrals to smoking cessation programs. ?? The National Suicide Prevention Hotline is available 14/05 if you or someone you know needs to find a reason to keep living. By calling 4-626-366-[employer] (9324) you'll be connected to a skilled, trained counselor at a crisis center in your area. [facility] Health Portal You can view and manage your care through the patient portal or by using a health care [facility] of your choosing. [employer] is a website that allows you to securely view your medical information including your hospital discharge summary, office visit summaries, medications and follow-up visits. You can also request appointments, renew medications, and request access to your medical information using a health care [facility]o of your choosing, or just ask a question. You can enroll at [email or web address] or register during your next office visit. [facility], in keeping with [facility] guidance, no longer requires face masks for [...] primary care provider, you may find a [facility] provider by calling [facility] Frequency Link at [phone]. Patient Care team information Care Team Personnel Name: Mariana Lozano NP Position: [facility] PCO Associate Professional Member Role: PCP Address: Address: [address] [place] [address]- Care Team Related Persons Name: RAUL DICKERSON Address: home [address] [place] [address] Name: PRASANNA ROONEY Address: home [address] [place] [address]
[2024-05-30 18:35] VITALS: BP 131/77; PULSE 82; RESP 18; TEMP 36.6; O2SAT 98
== END 2024-05-30 18:35 | disposition home or self-care (01) ==
PROVIDERS: Emergency Provider Emergency Medicine; PCP Nurse Practitioner Family
DX: S61.255A Open bite of left ring finger without damage to nail, initial encounter (principal); W53.01XA Bitten by mouse, initial encounter; Y93.89 Activity, other specified; Y92.9 Unspecified place or not applicable; Y99.9 Unspecified external cause status
CPT/HCPCS: 99282